=== PATIENT | female | born 1980 | race Caucasian/White ===

== ENCOUNTER 2017-02-23 10:46 | Emergency (ER) | payer OTHER ==
[2017-02-23 10:53] VITALS: RESP 17; O2SAT 100
[2017-02-23] MEDS ORDERED: Sodium Chloride 0.9% 1,000 ML IV ONE (11:13)
[2017-02-23] MEDS ORDERED: Sodium Chloride 0.9% 1,000 ML ONE (11:28)
[2017-02-23 11:34] LABS: BASO % 0.2 % (0.0-2.0); EOS # 0.1 K/uL (0.0-0.7); EOS % 2.6 % (0.0-4.0); HEMATOCRIT 35.5 % (34.0-47.0); LYMPH # 1.9 K/uL (1.0-4.3); LYMPH % 33.4 % (20.0-40.0); MEAN CELL VOLUME 83.9 fL (81.0-99.0); MEAN CORPUSCULAR HGB CONC 33.3 g/dL (33.0-37.0); MONO # 0.3 K/uL (0.0-0.8); MONO % 5.3 % (0.0-10.0); RED CELL DISTRIBUTION WIDTH 13.5 % (11.5-14.5); WHITE BLOOD COUNT 5.6 K/uL (4.8-10.8)
[2017-02-23 11:36] LABS: RBC URINE 2 /hpf (0-3); URINE BACTERIA RARE (<OCC); URINE BILIRUBIN NEGATIVE (NEGATIVE); URINE BLOOD 1+ (NEGATIVE); URINE COLOR Yellow (YELLOW); URINE GLUCOSE (UA) NORMAL (Normal); URINE KETONE TRACE mg/dL (NEGATIVE); URINE LEUKOCYTE ESTERASE NEG Leu/uL (Negative); URINE PROTEIN NEGATIVE (NEGATIVE); URINE UROBILINOGEN NORMAL mg/dL (0.2-1.0); WBC URINE 2 /hpf (0-5)
[2017-02-23 11:42] LABS: CHLORIDE 103 mmol/L (98-107); POTASSIUM 3.5 mmol/L (3.6-5.2); SODIUM 140 mmol/L (132-148)
[2017-02-23 11:44] LABS: ALB/GLOB RATIO 1.3 (1.0-2.1); ALKALINE PHOSPHATASE 64 U/L (38-126); AST/SGOT 24 U/L (14-36); BILIRUBIN,TOTAL 0.7 mg/dL (0.2-1.3); BLOOD UREA NITROGEN 17 mg/dL (7-17); CARBON DIOXIDE 24 mmol/L (22-30); GFR AFRICAN-AMERICAN > 60; TOTAL PROTEIN 7.1 g/dL (6.3-8.3)
[2017-02-23 11:45] LABS: ALT/SGPT 43 U/L (9-52); CALCIUM 9.1 mg/dl (8.6-10.4); GLUCOSE,RANDOM 93 mg/dL (65-105)
--- NOTE | 2017-02-23 12:55 | C.PDOC ---
History Of Present Illness 36-year-old female presents to the ED for evaluation of right upper quadrant abdominal pain which began around 1 week ago. She describes her symptoms as a sharp sensation that occurs intermittently, few episodes throughout the day. Patient also notes her pain occasionally radiates to her mid-upper back region. Patient states she was evaluated by her PMD 2 weeks ago for same complaint and was prescribed antibiotics. She also reports constipation and states her last bowel movement was earlier today. She denies fever, chills, cough, nausea, vomiting, diarrhea, dysuria, hematuria. Time Seen by Provider: 02/23/17 11:00 Chief Complaint (Nursing): Abdominal Pain History Per: Patient History/Exam Limitations: no limitations Onset/Duration Of Symptoms: Days, Intermittent Episodes Current Symptoms Are (Timing): Still Present Location Of Pain/Discomfort: RUQ Radiation Of Pain To:: Back Quality Of Discomfort: Sharp, "Pain" Associated Symptoms: Back Pain, Constipation. denies: Fever, Chills, Nausea, Vomiting, Diarrhea, Urinary Symptoms (dysuria/hematuria ) Exacerbating Factors: Food Last Bowel Movement: Today Recent travel outside of the [place]: No Additional History Per: Patient Abnormal Vaginal Bleeding: No Last Menstral Period: 02/02/17 Past Medical History Reviewed: Historical Data, Nursing Documentation, Vital Signs Vital Signs: Last Vital Signs Temp 97.8 F 02/23/17 13:11 Pulse 69 02/23/17 13:11 Resp 17 02/23/17 13:11 BP 97/64 L 02/23/17 13:11 Pulse Ox 100 02/23/17 13:45 - Medical History PMH: No Chronic Diseases Surgical History: (1) Family History: States: No Known Family Hx - Social History Hx Alcohol Use: No Hx Substance Use: No - Immunization History Hx Tetanus Toxoid Vaccination: No Hx Influenza Vaccination: No Hx Pneumococcal Vaccination: No Review Of Systems Constitutional: Negative for: Fever, Chills Respiratory: Negative for: Cough Gastrointestinal: Positive for: Abdominal Pain (right upper quadrant ), Constipation. Negative for: Nausea, Vomiting, Diarrhea Genitourinary: Negative for: Dysuria, Hematuria Musculoskeletal: Positive for: Back Pain Physical Exam - Physical Exam Appears: Non-toxic, No Acute Distress Skin: Normal Color, Warm, Dry Head: Atraumatic, Normacephalic Eye(s): bilateral: Normal Inspection Nose: Normal Oral Mucosa: Moist Neck: Normal ROM, Supple Chest: Symmetrical, No Deformity, No Tenderness Cardiovascular: Rhythm Regular, No Murmur Respiratory: Normal Breath Sounds, No Rales, No Rhonchi, No Wheezing Gastrointestinal/Abdominal: Bowel Sounds (active), Soft, Tenderness (to right upper quadrant with deep palpation ), No Mass, No Distention, No Guarding, No Rebound, Other (negative Espinosa's sign ) Back: Normal Inspection, No Vertebral Tenderness, No Paraspinal Tenderness Extremity: Bilateral: Atraumatic, Normal Color And Temperature, Normal ROM Neurological/Psych: Oriented x3, Normal Speech Gait: Steady ED Course And Treatment - Laboratory Results Result Diagrams: 02/23/17 11:31 02/23/17 11:31 Lab Interpretation: No Acute Changes O2 Sat by Pulse Oximetry: 100 (on RA) Pulse Ox Interpretation: Normal - CT Scan/US US abdomen Other Rad Studies (CT/US): Interpreted By Me, Read By Radiologist, Radiology Report Reviewed CT/US Interpretation: HISTORY: RUQ abd pain. COMPARISON: None. TECHNIQUE: Grayscale imaging was performed. FINDINGS: LIVER: Measures 13.9 cm. There is mild diffuse increased echogenicity of the liver parenchyma. No mass. No intrahepatic bile duct dilatation. GALLBLADDER: The gallbladder is well distended without gallstones, wall thickening or pericholecystic fluid. The sonographic Espinosa's sign is negative. COMMON BILE DUCT: Measures 2.2 mm. No stones. No dilatation. PANCREAS: Unremarkable as visualized. No mass. No ductal dilatation. RIGHT KIDNEY: Measures 10.0cm. Normal echogenicity. No calculus, mass, or hydronephrosis. LEFT KIDNEY: Measures 10.1cm. Normal echogenicity. No calculus, mass, or hydronephrosis. SPLEEN: Normal in size and contour. No mass. AORTA: No aneurysmal dilatation. IVC: Unremarkable. OTHER FINDINGS: None. IMPRESSION: Diffuse increased echogenicity in the liver may reflect hepatic steatosis however parenchymal infectious/ inflammatory etiologies cannot be entirely excluded. Clinical and laboratory correlation is advised. No cholelithiasis or biliary dilatation. Medical Decision Making Medical Decision Making: Impression: 36 y/o female with right upper quadrant abdominal pain Plan: * Labs * Pepcid IV * Toradol IV, * IV Fluids * US Abdomen Progress: labs and US Abdomen ordered. Patient received Pepcid IV, Toradol IV, and IV Fluids. Labs reviewed with no acute findings. US report reviewed showed no gallstones or cholecystitis, no other abnormality. Patient re-evaluated hs no fever and resting in no distress, reports pain improving. I discussed results with patient , and copy of report was provided. Patient feels comfortable going home and will be discharged. Patient given follow up instructions. Instructed to return to ER if symptoms worsen or new symptoms arise. Disposition - Disposition Referrals: Emerson Tinoco MD [Staff Provider] - Disposition: HOME/ ROUTINE Disposition Time: 14:00 Condition: GOOD Additional Instructions: Your labs were normal and Ultrasound does not show gallbladder disease. Please follow up with your primary doctor for further evaluation. Take pain medicine as needed. 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 - Scribe Statement The provider has reviewed the documentation as recorded by the Scribe (Ruby Kwon) All medical record entries made by the Scribe were at my direction and personally dictated by me. I have reviewed the chart and agree that the record accurately reflects my personal performance of the history, physical exam, medical decision making, and the department course for this patient. I have also personally directed, reviewed, and agree with the discharge instructions and disposition.
[2017-02-23 13:11] VITALS: BP 97/64; PULSE 69; TEMP 97.8
--- NOTE | 2017-02-23 13:34 | US ---
HISTORY: RUQ abd pain COMPARISON: None. TECHNIQUE: Grayscale imaging was performed. FINDINGS: LIVER: Measures 13.9 cm. There is mild diffuse increased echogenicity of the liver parenchyma. No mass. No intrahepatic bile duct dilatation. GALLBLADDER: The gallbladder is well distended without gallstones, wall thickening or pericholecystic fluid. The sonographic Espinosa's sign is negative. COMMON BILE DUCT: Measures 2.2 mm. No stones. No dilatation. PANCREAS: Unremarkable as visualized. No mass. No ductal dilatation. RIGHT KIDNEY: Measures 10.0cm. Normal echogenicity. No calculus, mass, or hydronephrosis. LEFT KIDNEY: Measures 10.1cm. Normal echogenicity. No calculus, mass, or hydronephrosis. SPLEEN: Normal in size and contour. No mass. AORTA: No aneurysmal dilatation. IVC: Unremarkable. OTHER FINDINGS: None. IMPRESSION: Diffuse increased echogenicity in the liver may reflect hepatic steatosis however parenchymal infectious/ inflammatory etiologies cannot be entirely excluded. Clinical and laboratory correlation is advised. No cholelithiasis or biliary dilatation.
== END 2017-02-23 14:02 | disposition home or self-care (01) ==
LOC: C.ER 10:46
DX: R10.11 Right upper quadrant pain (principal)
CPT/HCPCS: 76700; 80053; 81001; 83690; 84703; 85025; 96361; 96374; 96375; 99285; J1885; J7040

== ENCOUNTER 2017-08-26 10:25 | Emergency (ER) | payer OTHER ==
--- NOTE | 2017-08-26 11:45 | C.PDOC ---
History Of Present Illness <West Hairstonpson M - Last Filed: 08/26/17 12:02> <Дмитрий Anand - Last Filed: 08/26/17 14:19> This is a 37 year old female who is trying to become but is having difficulty becoming is presenting for evaluation. She gets cramps with her periods and was checking to see if this was normal or if it was causing fertility issues. No acute complaints today. (Дмитрий Anand) <West Hairstonpson M - Last Filed: 08/26/17 12:02> <Дмитрий Anand - Last Filed: 08/26/17 14:19> Time Seen by Provider: 08/26/17 10:53 Chief Complaint (Nursing): Female Genitourinary Past Medical History - Medical History PMH: No Chronic Diseases Surgical History: No Surg Hx, (1) Family History: States: No Known Family Hx - Social History Hx Alcohol Use: No Hx Substance Use: No - Immunization History Hx Tetanus Toxoid Vaccination: No Hx Influenza Vaccination: No Hx Pneumococcal Vaccination: No <Дмитрий Anand - Last Filed: 08/26/17 14:19> Vital Signs: Last Vital Signs Temp 98 F 08/26/17 12:16 Pulse 77 08/26/17 12:16 Resp 18 08/26/17 12:16 BP 133/68 08/26/17 12:16 Pulse Ox 96 08/26/17 12:16 Review Of Systems Constitutional: Negative for: Fever, Chills Cardiovascular: Negative for: Chest Pain Respiratory: Negative for: Cough, Shortness of Breath Gastrointestinal: Negative for: Nausea, Vomiting Genitourinary: Negative for: Dysuria Neurological: Negative for: Weakness, Numbness <Дмитрий Annad - Last Filed: 08/26/17 14:19> Physical Exam - Physical Exam Appears: Non-toxic Head: Atraumatic, Normacephalic Cardiovascular: Rhythm Regular Respiratory: Normal Breath Sounds Gastrointestinal/Abdominal: Soft, No Tenderness Neurological/Psych: Oriented x3, Normal Speech <Дмитрий Anand - Last Filed: 08/26/17 14:19> ED Course And Treatment O2 Sat by Pulse Oximetry: 100 <Дмитрий Anand - Last Filed: 08/26/17 14:19> Medical Decision Making <Derek Hairston - Last Filed: 08/26/17 12:02> <Дмитрий Anand - Last Filed: 08/26/17 14:19> Medical Decision Making: POC test was negative. It was explained to the patient that she will need to have follow up with motion picture director. She was given the number to the [facility] to establish care. Case discussed with Dr. Reed (Дмитрий Anand) Disposition Counseled Patient/Family Regarding: Studies Performed, Diagnosis, Need For Followup - Disposition Disposition Time: 12:02 <Derek Hairston - Last Filed: 08/26/17 12:02> Discussed With : Derek Hairston Doctor Will See Patient In The: ED <Дмитрий Anand - Last Filed: 08/26/17 14:19> - Disposition Referrals: [facility] [Outside] [facility] [Outside] Disposition: HOME/ ROUTINE Condition: STABLE Additional Instructions: follow up with medical clinic in 2 days call to make an appointment take medications as prescribed return to ER if symptoms worsens or progress Instructions: Infertility in Women Forms: [facility] (Slovak), General Discharge Instructions - Clinical Impression Clinical Impression: Infertility
[2017-08-26 12:17] VITALS: BP 133/68; PULSE 77; RESP 18; TEMP 98
[2017-08-26 14:20] VITALS: O2SAT 100
== END 2017-08-26 12:17 | disposition home or self-care (01) ==
LOC: C.ER 10:25
DX: N97.9 Female infertility, unspecified (principal)

== ENCOUNTER 2018-06-14 10:14 | Emergency (ER) | payer OTHER ==
--- NOTE | 2018-06-14 10:46 | C.PDOC ---
History Of Present Illness 38 y/o female presents to ED stating that since yesterday, she has had vaginal bleeding and spotting. States her last menstrual period was 05/12/18 and she has been trying to conceive. Patient has not taken any test at home and denies any pain. Time Seen by Provider: 06/14/18 10:22 Chief Complaint (Nursing): Back Pain History Per: Patient History/Exam Limitations: no limitations Onset/Duration Of Symptoms: Days Current Symptoms Are (Timing): Still Present Past Medical History Reviewed: Historical Data, Nursing Documentation, Vital Signs Surgical History: (1) Family History: States: No Known Family Hx - Social History Hx Alcohol Use: No Hx Substance Use: No - Immunization History Hx Tetanus Toxoid Vaccination: No Hx Influenza Vaccination: No Hx Pneumococcal Vaccination: No Review Of Systems Genitourinary: Positive for: Vaginal Bleeding. Negative for: Dysuria, Pelvic Pain Physical Exam - Physical Exam Appears: Non-toxic, No Acute Distress Skin: Warm, Dry Head: Atraumatic, Normacephalic Eye(s): bilateral: Normal Inspection Oral Mucosa: Moist Neck: Supple Chest: Symmetrical Cardiovascular: Rhythm Regular, No Murmur Respiratory: Normal Breath Sounds, No Rales, No Rhonchi, No Wheezing Gastrointestinal/Abdominal: Soft, No Tenderness Extremity: Bilateral: Atraumatic, Normal Color And Temperature, Normal ROM Neurological/Psych: Oriented x3, Normal Speech ED Course And Treatment O2 Sat by Pulse Oximetry: 100 (RA) Pulse Ox Interpretation: Normal Progress Note: Urine was negative. Patient will be discharged home. Instructed patient to follow up with OBGYN in 1 week. Disposition Counseled Patient/Family Regarding: Studies Performed, Diagnosis, Need For Followup - Disposition Referrals: [facility] [Outside] Disposition: HOME/ ROUTINE Disposition Time: 10:45 Condition: STABLE Additional Instructions: RETAKE TEST IN 5-7 DAYS RETURN TO ER IF YOU HAVE ANY PAIN OR CONCERNING SYMPTOMS FOLLOW UP WITH COMPANY MANAGER WITHIN 1 WEEK Instructions: Tests Forms: [facility] (Irish) Print Language: TURKISH - Clinical Impression Clinical Impression: Encounter for test - Scribe Statement The provider has reviewed the documentation as recorded by the Isaiahibe Theresa Archer Provider Attestation: All medical record entries made by the Isaiahibadeola were at my direction and personally dictated by me. I have reviewed the chart and agree that the record accurately reflects my personal performance of the history, physical exam, medic al decision making, and the department course for this patient. I have also personally directed, reviewed, and agree with the discharge instructions and disposition.
[2018-06-14 10:51] VITALS: BP 104/74; PULSE 70; RESP 18; TEMP 98.5; O2SAT 100
== END 2018-06-14 10:57 | disposition home or self-care (01) ==
LOC: C.ER 10:14
DX: Z32.00 Encounter for pregnancy test, result unknown (principal)